=== PATIENT | female | born 1995 | race Caucasian/White ===

== ENCOUNTER 2016-12-30 14:15 | Emergency (ER) | payer OTHER ==
[~2016-12-30] VITALS: Ht 162.6 cm; Wt 62.7 kg
[2016-12-30 14:18] VITALS: BP 130/71
[2016-12-30 15:43] LABS: MCH 30.1 PG (29.0-34.0); MCHC 33.4 G/DL (30.0-36.0); MCV 90.1 FL (83-99); MEAN PLAT.VOLUME 9.5 uM^3 (9.5-12.4); PLATELET COUNT 301 K/uL (156-360); RBC DIS.WIDTH-CV 12.3 % (11.8-14.6); RBC DIS.WIDTH-SD 40.4 % (39-53); RED BLOOD COUNT 4.55 M/uL (3.80-5.20); WHITE BLOOD COUNT 7.9 K/uL (4.1-10.2)
[2016-12-30 15:46] LABS: ADD MIUA? YES; BILIRUBIN NEGATIVE; BLOOD NEGATIVE; COLOR YELLOW ((YELLOW)); GLUCOSE (STRIP) NEGATIVE; KETONES 5; LEUKOCYTES NEGATIVE; NITRITE NEGATIVE; PROTEIN (STRIP) 30; SPECIFIC GRAVITY 1.026 (1.000-1.030)
[2016-12-30 15:54] LABS: CHLORIDE 106 mEq/L (99-109); POTASSIUM 3.8 mEq/L (3.7-5.4); SODIUM 140 mEq/L (136-147)
[2016-12-30 15:57] LABS: GLUCOSE 92 mg/dL (70-99)
[2016-12-30 15:58] LABS: ANION GAP 8 MEQ/L (2-14)
[2016-12-30 15:59] LABS: TOTAL BILIRUBIN 0.6 mg/dL (0.0-1.0)
[2016-12-30 16:00] LABS: ALKALINE PHOSPHATASE 59 IU/L (3-129)
[2016-12-30 16:01] LABS: UREA NITROGEN (BUN) 17 mg/dL (9-23)
[2016-12-30 16:04] LABS: GFR ESTIMATE (CALCULATED) > 59 mL/min/; LIPASE 19 U/L (1.0-51.0)
[2016-12-30 16:09] LABS: QUANTITATIVE HCG < 4.0 MIU/ML
[2016-12-30 16:11] LABS: BACTERIA 3+ /HPF; EPITHELIAL CELLS 1+ /HPF; MUCUS TRACE /LPF; RED BLOOD CELLS 0-5 /HPF (0-5); UCUL ADDED? YES; WHITE BLOOD CELLS 0-5 /HPF (0-5)
[2016-12-30] MEDS ORDERED: AUGMENTIN875 MG PO (17:30)
[2016-12-30] MEDS ORDERED: MOTRIN600 MG PO (17:31)
== END 2016-12-30 17:44 | disposition home or self-care (01) ==
LOC: RME 14:15 → EME 14:15 → RME 17:44
PROVIDERS: Physician Assistant
DX: K80.20 Calculus of gallbladder without cholecystitis without obstruction (principal); N39.0 Urinary tract infection, site not specified; R19.7 Diarrhea, unspecified
CPT/HCPCS: 76705; 80053; 81003; 83690; 84702; 85027; 87086; 99281; 99283